=== PATIENT | female | born 1970 | race Asian ===

== ENCOUNTER 2017-03-22 05:01 | Emergency (ER) | payer BC ==
[~2017-03-22] VITALS: Ht 160 cm; Wt 51.7 kg
[2017-03-22 05:10] VITALS: BP_SYST 134
[2017-03-22] MEDS ORDERED: KETOROLAC TROMETHAMINE 60 MG/2 ML VIAL IM ONE (05:45)
[2017-03-22 05:49] LABS: BASOPHILS % (AUTO) 0.6 % (0.0-2.0); EOSINOPHILS # (AUTO) 0.1 K/uL (0.0-0.4); HEMATOCRIT 36.4 % (36-48); HEMOGLOBIN 12.2 g/dL (12.0-16.0); LYMPHOCYTES % (AUTO) 35.9 % (20.5-51.5); MEAN CORPUSCULAR HEMOGLOBIN 29 pg (27-31); MEAN CORPUSCULAR HGB CONC 34 % (32-36); MEAN CORPUSCULAR VOLUME 87 fL (79.0-98.0); MONOCYTES # (AUTO) 0.4 K/uL (0.0-1.0); MONOCYTES % (AUTO) 7.1 % (1.7-9.3); NEUTROPHILS % (AUTO) 54.4 % (40.0-70.0); PLATELET COUNT (AUTO) 229 K/uL (130-430); RED BLOOD CELL COUNT(AUTO) 4.18 MIL/uL (4.2-6.2); RED CELL DISTRIBUTION WIDTH 12.2 % (9.0-15.0); WHITE BLOOD COUNT (AUTO) 5.5 K/uL (4.8-10.8)
[2017-03-22 05:58] LABS: PROTHROMBIN TIME 10.4 SECS (9.5-12.5)
[2017-03-22] MEDS ORDERED: IBUPROFEN 800 MG TABLET PO ONE (06:45)
[2017-03-22 07:06] VITALS: BP_SYST 129
== END 2017-03-22 07:06 | disposition home or self-care (01) ==
LOC: SED 05:01
DX: N93.8 Other specified abnormal uterine and vaginal bleeding (principal)
CPT/HCPCS: 36415; 81025; 85025; 85610-TC; 85730-TC; 99284; J1885